=== PATIENT | male | born 1945 | race Caucasian/White ===

== ENCOUNTER 2016-09-13 04:19 | Observation (INO) | payer MEDICARE ==
[~2016-09-13] VITALS: Ht 162.6 cm; Wt 80.0 kg
[2016-09-13] MEDS ORDERED: ONDANSETRON HCL 4 MG/2 ML VIAL ONE (04:25)
[2016-09-13 04:26] VITALS: BP 201/89; PULSE 55; RESP 18; TEMP 98.1; O2SAT 95
[2016-09-13] MEDS ORDERED: SODIUM CHLOR 0.9% 1000 ML INJ 1,000 ML IV ONE (04:30)
[2016-09-13] MEDS ORDERED: ONDANSETRON HCL 4 MG/2 ML VIAL IV PUSH ONE (04:30)
--- NOTE | 2016-09-13 04:43 | PD ---
HPI Chief Complaint: General Weakness Time Seen by Provider: 04:25 Travel History International Travel<30 days: No Contact w/Intl Traveler<30days: No Traveled to known affect area: No History of Present Illness HPI This is a 70-year-old male who presents to the emergency department with 3 days of ringing in his right ear, constant, worsening over the past day associated with dizziness. He says initially he felt dizzy and nauseous. Intermittently he's been feeling sweaty and cool. He went to the [place] and was referred to an sed high school teacher but didn't want to travel. He says overnight he became very dizzy and has been having difficulty walking. He started to vomit and had several episodes of vomiting at home before calling EMS. He denies a headache or chest pain. He's never had symptoms like this before. He takes 81 mg of baby aspirin a day. PFSH Past Medical History Cancer: Yes (PROSTATE- IN REMISSION) High Cholesterol: Yes Diminished Hearing: No Past Surgical History Surgical History: No Previous Surgery Other Surgery: Yes (PROSTATE BIOPSY) Social History Alcohol Use: Yes (RARELY) Tobacco Use: No Substance Use: No Allergies-Medications (Allergen,Severity, Reaction): Coded Allergies: No Known Allergies (Unverified , 09/13/16) Review of Systems Except as stated in HPI: all other systems reviewed are Neg Physical Exam Narrative GENERAL:Uncomfortable appearing, actively retching SKIN: Warm and dry. HEAD: Atraumatic. Normocephalic. EYES: Pupils equal and round. No injection or drainage. ENT: Moist mucous membranes NECK: Trachea midline. CARDIOVASCULAR: Regular rate and rhythm. No murmur appreciated. RESPIRATORY: Clear to auscultation. Breath sounds equal bilaterally. GASTROINTESTINAL: Abdomen soft, non-tender, nondistended. MUSCULOSKELETAL: No obvious deformities. NEUROLOGICAL: Awake and alert. No obvious cranial nerve deficits. No dysarthria or aphasia. No upper or lower extremity drift. Mild ataxial of the bilateral upper extremities. PSYCHIATRIC: Appropriate mood and affect; insight and judgment normal. Data Data Last Documented VS Vital Signs Date Time Temp Pulse Resp B/P Pulse Ox O2 Delivery O2 Flow Rate FiO2 09/13/16 04:31 Room Air 09/13/16 04:26 98.1 55 18 201/89 95 Orders Ondansetron Inj (Zofran Inj) (09/13/16 04:25) Ct Brain W/O Iv Contrast(Rout) (09/13/16 ) Complete Blood Count With Diff (09/13/16 04:26) Comprehensive Metabolic Panel (09/13/16 04:26) Electrocardiogram (09/13/16 ) Troponin I (09/13/16 04:26) ^ Insert Iv (09/13/16 04:26) Ondansetron Inj (Zofran Inj) (09/13/16 04:30) Sodium Chlor 0.9% 1000 Ml Inj (Ns 1000 M (09/13/16 04:30) Salicylates (Aspirin) (09/13/16 04:43) Meclizine (Antivert) (09/13/16 05:00) Admit Order (Ed Use Only) (09/13/16 05:45) Labs Laboratory Tests Test 09/13/16 04:25 White Blood Count 6.4 TH/MM3 Red Blood Count 5.31 MIL/MM3 Hemoglobin 14.9 GM/DL Hematocrit 43.9 % Mean Corpuscular Volume 82.6 FL Mean Corpuscular Hemoglobin 28.1 PG Mean Corpuscular Hemoglobin 33.9 % Concent Red Cell Distribution Width 15.8 % Platelet Count 267 TH/MM3 Mean Platelet Volume 8.6 FL Neutrophils (%) (Auto) 69.1 % Lymphocytes (%) (Auto) 17.1 % Monocytes (%) (Auto) 10.7 % Eosinophils (%) (Auto) 2.4 % Basophils (%) (Auto) 0.7 % Neutrophils # (Auto) 4.4 TH/MM3 Lymphocytes # (Auto) 1.1 TH/MM3 Monocytes # (Auto) 0.7 TH/MM3 Eosinophils # (Auto) 0.2 TH/MM3 Basophils # (Auto) 0.0 TH/MM3 CBC Comment DIFF FINAL Differential Comment Sodium Level 141 MEQ/L Potassium Level 3.9 MEQ/L Chloride Level 108 MEQ/L Carbon Dioxide Level 24.0 MEQ/L Anion Gap 9 MEQ/L Blood Urea Nitrogen 22 MG/DL Creatinine 1.19 MG/DL Estimat Glomerular Filtration 60 ML/MIN Rate Random Glucose 130 MG/DL Calcium Level 8.7 MG/DL Total Bilirubin 0.7 MG/DL Aspartate Amino Transf 23 U/L (AST/SGOT) Alanine Aminotransferase 26 U/L (ALT/SGPT) Alkaline Phosphatase 61 U/L Troponin I LESS THAN 0.02 NG/ML Total Protein 7.3 GM/DL Albumin 3.5 GM/DL Salicylates Level LESS THAN 1.7 MG/DL MDM Medical Decision Making Medical Screen Exam Complete: Yes Emergency Medical Condition: Yes Interpretation(s) afebrile, bradycardia no leukocytosis electrolytes within normal limits troponin .[address] head: no acute process Differential Diagnosis Mnire's disease, vestibular neuritis, ischemic stroke, hemorrhagic stroke, BPPV Narrative Course This is a 70-year-old male who presents to the emergency department with onset of tinnitus and dizziness that started 2 days ago and has been worsening. He is actively retching in the emergency department despite 8 mg of IV Zofran and meclizine. He was placed on a monitor and an IV was established. Labs were obtained which were all reassuring. CT the head is negative for intercranial hemorrhage. It is also mild ataxia low bilateral upper extremities and he describes gait instability when he walks. I think it's reasonable to place the patient in observation for symptomatic control and MRI to rule out ischemic stroke. Physician Communication Physician Communication Discussed with Dr. Gayle Diagnosis Primary Impression: Dizziness Admitting Information Admitting Physician Requests: Observation Rocio Russo MD Sep 13, 2016 04:43
--- NOTE | 2016-09-13 04:51 | RADRPT ---
EXAM DATE/TIME: 09/13/2016 04:41 [facility] COMPARISON: No previous studies available for comparison. INDICATIONS : Dizziness, weakness and ringing in ears for two days. RADIATION DOSE: 42.84 CTDIvol (mGy) MEDICAL HISTORY : None SURGICAL HISTORY : None. ENCOUNTER: Initial ACUITY: 2 days PAIN SCALE: 0/10 LOCATION: cranial TECHNIQUE: Multiple contiguous axial images were obtained of the head. Using automated exposure control and adj ustment of the mA and/or kV according to patient size, radiation dose was kept as low as reasonably a chievable to obtain optimal diagnostic quality images. FINDINGS: CEREBRUM: The ventricles are normal for age. No evidence of midline shift, mass lesion, hemorrhage or acute in farction. No extra-axial fluid collections are seen. POSTERIOR FOSSA: The cerebellum and brainstem are intact. The 4th ventricle is midline. The cerebellopontine angle i s unremarkable. EXTRACRANIAL: The visualized portion of the orbits is intact. SKULL: The calvaria is intact. No evidence of skull fracture. CONCLUSION: Normal examination. Augustin Montgomery MD on September 13, 2016 at 4:49 Board Certified Radiologist. This report was verified electronically.
[2016-09-13 04:58] LABS: AUTOMATED NEUTROPHIL # 4.4 TH/MM3 (1.8-7.7); BASOPHIL % 0.7 % (0.0-2.0); EOSINOPHIL # 0.2 TH/MM3 (0-0.4); EOSINOPHIL % 2.4 % (0.0-4.0); HEMATOCRIT 43.9 % (39.0-51.0); HEMO FLAGS DIFF FINAL; LYMPH % 17.1 % (9.0-44.0); LYMPHOCYTE # 1.1 TH/MM3 (1.0-4.8); MEAN CELL VOLUME 82.6 FL (80.0-100.0); MEAN CORPUSCULAR HEMOGLOBIN 28.1 PG (27.0-34.0); MEAN CORPUSCULAR HGB CONC 33.9 % (32.0-36.0); MONO % 10.7 % (0.0-8.0); NEUT % 69.1 % (16.0-70.0); PLATELET COUNT 267 TH/MM3 (150-450); RED BLOOD COUNT 5.31 MIL/MM3 (4.50-5.90); RED CELL DISTRIBUTION WIDTH 15.8 % (11.6-17.2); WHITE BLOOD COUNT 6.4 TH/MM3 (4.0-11.0)
[2016-09-13 05:00] VITALS: BP 173/79; PULSE 53; RESP 20; O2SAT 98
[2016-09-13] MEDS ORDERED: MECLIZINE HCL 25 MG TAB PO ONE (05:00)
[2016-09-13 05:21] LABS: ALKALINE PHOSPHATASE 61 U/L (45-117); TOTAL BILIRUBIN ADULT 0.7 MG/DL (0.2-1.0)
[2016-09-13 05:22] LABS: ALT (GPT) 26 U/L (12-78); ANION GAP 9 MEQ/L (5-15); AST (GOT) 23 U/L (15-37); BLOOD UREA NITROGEN 22 MG/DL (7-18); CHLORIDE 108 MEQ/L (98-107); GLOMERULAR FILTRATION RATE 60 ML/MIN (>89); POTASSIUM 3.9 MEQ/L (3.5-5.1); SODIUM (NA) 141 MEQ/L (136-145)
[2016-09-13 06:00] VITALS: BP 203/88; PULSE 56; RESP 20; O2SAT 98
[2016-09-13] MEDS ORDERED: METOCLOPRAMIDE HCL 10 MG/2 ML VIAL IV PUSH PRN (06:15)
[2016-09-13] MEDS ORDERED: SODIUM CHLORIDE 0.9% FLUSH 5 ML FLUSH FLUSH PRN (06:15)
[2016-09-13] MEDS ORDERED: NALOXONE HCL 0.4 MG/ML AMP IV PRN (06:15)
--- NOTE | 2016-09-13 06:23 | HHI.HP ---
[facility] Non-Staff Admission Diagnosis dizziness Diagnoses: (1) Dizziness (2) Tinnitus (3) Imbalance (4) Hyperlipidemia (5) Acute renal insufficiency Chief Complaint: Ears ringing, dizziness, nausea and vomiting Travel History International Travel<30 Days: No Contact w/Intl Traveler <30 Da: No Traveled to Known Affected Are: No History of Present Illness Mr. Reid is a 70 year-old male with a history of hyperlipidemia and prostate cancer who presented to the ER for evaluation of severe dizziness. Head CT performed in ER was negative. The patient continued to vomit in the ER despite anti-emetics and he was admitted for observation. The patient is seen in the emergency room. He states that his symptoms began on 09/11/2016 with a loud ringing in his right ear. He was able to go to the gym and work out but noted that afterwards while he was showering, he became very unsteady. He states that over the next couple of days he became dizzy and symptoms got progressively worse and were accompanied by nausea, vomiting, palpitations, diaphoresis, and a feeling of being "wobbly" on legs while ambulating. He states he vomited twice while EMS at house and once in ER here. Denies hematemesis. Denies unilateral weakness noted when ambulating. Denies dysphagia, visual changes, or facial droop. 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 Denies history of hypertension, diabetes mellitus, heart problems, breathing problems, liver or kidney disease, seizures, thyroid dysfunction, irregular heart rhythms such as atrial fibrillation, problems with blood clots such as DVT , PE, or CVA. History of prostate cancer - had 44 radiation treatments for it, no surgery. . Review of Systems Constitutional: COMPLAINS OF: Diaphoretic episodes, Dizziness Ears, nose, mouth, throat: COMPLAINS OF: Tinnitus, DENIES: Vertigo, Ear Pain Gastrointestinal: COMPLAINS OF: Nausea, Vomiting, DENIES: Black stools, Bloody stools, Difficulty Swallowing Neurologic: COMPLAINS OF: Abnormal gait, Poor Balance, DENIES: Headache, Localized weakness, Paresthesias, Seizures, Speech Problems Other 10 point system review performed and other than what is noted in history of present illness and ROS, review is otherwise negative . Past Family Social History Past Medical History Prostate CA Hyperlipidemia . Past Surgical History A couple of moles removed in the 70's . Reported Medications Pravastatin 20 mg daily Baby aspirin Vitamin D MVI . Allergies: Coded Allergies: No Known Allergies (Unverified , 09/13/16) Active Ordered Medications Current Medications Ondansetron HCl (Zofran Inj) 4 mg STK-MED ONCE .ROUTE ; Start 09/13/16 at 04:25 ; Stop 09/13/16 at 04:26; Status DC Ondansetron HCl 4 mg 4 mg ONCE ONCE IV PUSH Last administered on 09/13/16 04: 35; Start 09/13/16 at 04:30; Stop 09/13/16 at 04:31; Status DC Sodium Chloride (NS 1000 ml Inj) 1,000 ml @ 999 mls/hr BOLUS ONCE IV Last administered on 09/13/16 04:35; Start 09/13/16 at 04:30; Stop 09/13/16 at 05:30 ; Status DC Meclizine HCl (Antivert) 25 mg ONCE ONCE PO Last administered on 09/13/16 05: 07; Start 09/13/16 at 05:00; Stop 09/13/16 at 05:01; Status DC IV Flush (NS Flush) 2 ml UNSCH PRN FLUSH FLUSH AFTER USING IV ACCESS; Start at 06:15 IV Flush (NS Flush) 2 ml BID FLUSH ; Start 09/13/16 at 09:00 Ondansetron HCl (Zofran Inj) 4 mg Q6H PRN IVP NAUSEA OR VOMITING; Start at 10:00 Metoclopramide HCl (Reglan Inj) 5 mg Q6H PRN IV PUSH NAUSEA OR VOMITING; Start 09/13/16 at 06:15 Naloxone HCl (Narcan Inj) 0.4 mg UNSCH PRN IV SEE LABEL COMMENTS; Start at 06:15 Family History Mother had a CVA, hiatal hernia . Social History Tobacco: denies Alcohol: occasional beer Illicit drugs: denies . Physical Exam Vital Signs Vital Signs Date Time Temp Pulse Resp B/P Pulse Ox O2 Delivery O2 Flow Rate FiO2 09/13/16 04:31 Room Air 09/13/16 04:26 98.1 55 18 201/89 95 Physical Exam GENERAL: This is a well-developed patient who appears younger than stated age, in no apparent distress. SKIN: No rashes, ecchymoses or lesions. Cool and dry. HEAD: Atraumatic. Normocephalic. EYES: No scleral icterus. No injection or drainage. ENT: Nose without bleeding, purulent drainage. NECK: Trachea midline. No JVD or lymphadenopathy. CARDIOVASCULAR: Regular rate and rhythm without murmurs, gallops, or rubs. RESPIRATORY: Clear to auscultation. Breath sounds equal bilaterally. No wheezes , rales, or rhonchi. GASTROINTESTINAL: Abdomen soft, non-tender, nondistended. No guarding. MUSCULOSKELETAL: Extremities without clubbing, cyanosis, or edema. No calf tenderness. NEUROLOGICAL: Awake and alert. Motor and sensory grossly within normal limits. Normal speech. . Laboratory Laboratory Tests Test 09/13/16 04:25 White Blood Count 6.4 Red Blood Count 5.31 Hemoglobin 14.9 Hematocrit 43.9 Mean Corpuscular Volume 82.6 Mean Corpuscular Hemoglobin 28.1 Mean Corpuscular Hemoglobin 33.9 Concent Red Cell Distribution Width 15.8 Platelet Count 267 Mean Platelet Volume 8.6 Neutrophils (%) (Auto) 69.1 Lymphocytes (%) (Auto) 17.1 Monocytes (%) (Auto) 10.7 Eosinophils (%) (Auto) 2.4 Basophils (%) (Auto) 0.7 Neutrophils # (Auto) 4.4 Lymphocytes # (Auto) 1.1 Monocytes # (Auto) 0.7 Eosinophils # (Auto) 0.2 Basophils # (Auto) 0.0 CBC Comment DIFF FINAL Differential Comment Sodium Level 141 Potassium Level 3.9 Chloride Level 108 Carbon Dioxide Level 24.0 Anion Gap 9 Blood Urea Nitrogen 22 Creatinine 1.19 Estimat Glomerular Filtration 60 Rate Random Glucose 130 Calcium Level 8.7 Total Bilirubin 0.7 Aspartate Amino Transf 23 (AST/SGOT) Alanine Aminotransferase 26 (ALT/SGPT) Alkaline Phosphatase 61 Troponin I LESS THAN 0.02 Total Protein 7.3 Albumin 3.5 Salicylates Level LESS THAN 1.7 Result Diagram: 09/13/1642409/13/16424 Imaging Current Medications Ondansetron HCl (Zofran Inj) 4 mg STK-MED ONCE .ROUTE ; Start 09/13/16 at 04:25 ; Stop 09/13/16 at 04:26; Status DC Ondansetron HCl 4 mg 4 mg ONCE ONCE IV PUSH Last administered on 09/13/16 04: 35; Start 09/13/16 at 04:30; Stop 09/13/16 at 04:31; Status DC Sodium Chloride (NS 1000 ml Inj) 1,000 ml @ 999 mls/hr BOLUS ONCE IV Last administered on 09/13/16 04:35; Start 09/13/16 at 04:30; Stop 09/13/16 at 05:30 ; Status DC Meclizine HCl (Antivert) 25 mg ONCE ONCE PO Last administered on 09/13/16 05: 07; Start 09/13/16 at 05:00; Stop 09/13/16 at 05:01; Status DC IV Flush (NS Flush) 2 ml UNSCH PRN FLUSH FLUSH AFTER USING IV ACCESS; Start at 06:15 IV Flush (NS Flush) 2 ml BID FLUSH ; Start 09/13/16 at 09:00 Ondansetron HCl (Zofran Inj) 4 mg Q6H PRN IVP NAUSEA OR VOMITING; Start at 10:00 Metoclopramide HCl (Reglan Inj) 5 mg Q6H PRN IV PUSH NAUSEA OR VOMITING; Start 09/13/16 at 06:15 Naloxone HCl (Narcan Inj) 0.4 mg UNSCH PRN IV SEE LABEL COMMENTS; Start at 06:15 Assessment and Plan Problem List: (1) Dizziness ICD Code: R42 Status: Acute (2) Tinnitus ICD Code: H93.19 Status: Acute (3) Imbalance ICD Code: R26.89 Status: Acute (4) Nausea and vomiting ICD Code: R11.2 Status: Acute (5) Hyperlipidemia ICD Code: E78.5 Status: Chronic (6) Acute renal insufficiency ICD Code: N28.9 Status: Acute Assessment and Plan Mr. Reid is a 70 year-old male with a history of hyperlipidemia and prostate cancer who presented to the ER for evaluation of severe dizziness. Head CT performed in ER was negative. The patient continued to vomit in the ER despite anti-emetics and he was admitted for observation. Dizziness Tinnitus - Meclizine 25 mg by mouth scheduled every 8 hours - MRI brain without contrast rule out CVA - Bilateral carotid ultrasound to rule out carotid atherosclerosis as contributing factor - Neuro checks every 4 hours - Continuous cardiac telemetry to monitor for cardiac arrhythmias that contributing to symptoms - Out of bed with assistance only -Troponin I less than 0.02 on admission Nausea and vomiting - Reglan 5 mg IV every 6 hours when necessary for nausea and/or vomiting - Zofran 4 mg IV every 6 hours when necessary for nausea and/or vomiting Imbalance - PT consult to evaluate gait stability Hyperlipidemia - resume home statin therapy once medication reconciliation is completed; nursing order written Mild renal insufficiency likely secondary to dehydration resulting from nausea and vomiting - BUN 22, creatinine 1.19, estimated GFR 60- no prior visits for comparison - Repeat BMP in a.m. and follow trends DVT prophylaxis - SCDs Written by Lillian Ragland, acting as scribe for Dr. Gayle on 09/13/16 at 06:15. All or portions of this note were transcribed by scribe [Lillian Ragland]. I, Dr. Giselle Gayle personally performed the history, physical exam, and medical decision making; and confirmed the accuracy of the information in the transcribed note. Authenticated by Dr. Giselle Gayle on 09/13/16 at 0615 Discussed Condition With ER physician and patient . Lillian Ragland Sep 13, 2016 06:23 Giselle Gayle MD Oct 23, 2016 08:01
[2016-09-13] MEDS ORDERED: ASPI81CH CHEW (06:46)
[2016-09-13] MEDS ORDERED: PRAV20TA2 PO (06:46)
[2016-09-13] MEDS ORDERED: FISH500C PO (06:46)
[2016-09-13 07:00] VITALS: BP 156/72; PULSE 53; PULSE 54; RESP 16; O2SAT 96; O2SAT 98
[2016-09-13] MEDS ORDERED: cloNIDine HCL 0.1 MG TAB PO PRN (07:15)
[2016-09-13] MEDS ORDERED: cloNIDine HCL 0.1 MG TAB PO ONE (07:15)
[2016-09-13] MEDS ORDERED: ENALAPRILAT 1.25 MG/ML VIAL IV PUSH PRN (07:15)
[2016-09-13] MEDS ORDERED: SODIUM CHLORIDE 0.9% FLUSH 5 ML FLUSH FLUSH SCH (09:00)
[2016-09-13] MEDS ORDERED: GADODIAMIDE PF 287 MG/ML 20 ML VIAL (for RAD MRI) IV ONE (09:50)
--- NOTE | 2016-09-13 09:57 | RADRPT ---
EXAM DATE/TIME: 09/13/2016 09:30 [facility] COMPARISON: CT BRAIN W/O CONTRAST, September 13, 2016, 4:41. INDICATIONS : Dizziness. MEDICAL HISTORY : Carcinoma, prostate. SURGICAL HISTORY : None. ENCOUNTER: Initial ACUITY: 1 day PAIN SCORE: 0/10 LOCATION: cranial Please note a normal MRA of the brain does not entirely exclude the possibility of a small aneurysm, nor the possibility of distal intracranial vessel disease. TECHNIQUE: 3D time of flight MRA was performed. Source images, multiplanar STS MIP, and 3D volume MIP reconstru ctions were reviewed. FINDINGS: There is excellent visualization of the major intracranial arteries out to the second-order branch ve ssels. There is no evidence for aneurysm, vessel truncation or stenosis, and no evidence for vascula r malformation. CONCLUSION: Normal examination. Alexandre Gilmore MD on September 13, 2016 at 9:54 Board Certified Radiologist. This report was verified electronically.
[2016-09-13] MEDS ORDERED: ONDANSETRON HCL 4 MG/2 ML VIAL IVP PRN (10:00)
--- NOTE | 2016-09-13 10:01 | RADRPT ---
EXAM DATE/TIME: 09/13/2016 09:30 [facility] COMPARISON: No previous studies available for comparison. INDICATIONS : Dizziness. CONTRAST: 16 cc Omniscan (gadodiamide) IV MEDICAL HISTORY : Carcinoma, prostate. SURGICAL HISTORY : None. ENCOUNTER: Initial ACUITY: 1 day PAIN SCORE: 0/10 LOCATION: cranial TECHNIQUE: Multiplanar, multisequence MRI of the brain was performed both prior to and following the administrat ion of paramagnetic contrast. FINDINGS: CEREBRUM: The ventricles are normal for age. No evidence of midline shift, mass lesion, hemorrhage or acute in farction. No extraaxial fluid collections are seen. The pituitary gland and suprasellar cistern are normal in configuration. A few areas of small microvascular ischemic demyelinization in deep white m atter acceptable for the patient's age and WHITE MATTER: No significant signal abnormalities are seen in the white matter. POSTERIOR FOSSA: The cerebellum and brainstem are intact. The 4th ventricle is midline. The cerebellopontine angle is unremarkable. The cerebellar tonsils are normal in position. DIFFUSION IMAGING: No focal areas of restricted diffusion are seen. No evidence of acute infarction. EXTRACRANIAL: The visualized portions of the orbits and paranasal sinuses are unremarkable. POST-CONTRAST: No abnormal areas of parenchymal or dural enhancement. No evidence of blood-brain barrier breakdown. CONCLUSION: Normal examination for a patient of this age. Alexandre Gilmore MD on September 13, 2016 at 9:59 Board Certified Radiologist. This report was verified electronically.
--- NOTE | 2016-09-13 10:37 | RADRPT ---
EXAM DATE/TIME: 09/13/2016 08:30 [facility] COMPARISON: No previous studies available for comparison. INDICATIONS : Dizziness, headache, vomiting. MEDICAL HISTORY : Carcinoma, prostate. SURGICAL HISTORY : None. ENCOUNTER: Initial ACUITY: 2 days PAIN SCORE: 0/10 LOCATION: Bilateral neck PEAK SYSTOLIC VELOCITIES (cm/sec): ICA/CCA RATIO: Right: 1.1 Left: 0.8 ICA: Right: 129 Left: 79 CCA: Right: 122 Left: 97 ECA: Right: 67 Left: 90 VERTEBRAL: Right: 73 antegrade Left: 47 antegrade Elevated flow velocities and ICA/CCA ratios have been found to correlate with increased degrees of vessel stenosis, calculated as percentage of diameter relative to a normal segment of distal ICA/CCA FINDINGS: RIGHT CAROTID: No significant stenosis is visualized. There is mild atherosclerotic plaquing. The waveforms are wit hin normal limits. LEFT CAROTID: No significant stenosis is visualized. There is mild atherosclerotic plaquing. The waveforms are wit hin normal limits. VERTEBRAL ARTERIES: Antegrade flow is seen in both vertebral arteries. MISCELLANEOUS: None. CONCLUSION: 1. No hemodynamically significant carotid artery stenosis identified. 2. Mild atherosclerotic plaquing at the bifurcations. Levon Bolanos MD on September 13, 2016 at 10:35 Board Certified Radiologist. This report was verified electronically.
[2016-09-13 11:00] VITALS: BP 145/65; PULSE 58; RESP 16; O2SAT 98
--- NOTE | 2016-09-13 13:09 | HHI.PR ---
Subjective Remarks Follow up for dizziness. Patient's dizziness spontaneously resolved earlier today. He's been able to ambulate with no symptoms. He has no complaints at this time and wants to go home. Objective Vitals Vital Signs Date Time Temp Pulse Resp B/P Pulse Ox O2 Delivery O2 Flow Rate FiO2 09/13/16 11:00 58 16 145/65 98 Room Air 09/13/16 07:00 54 16 156/72 96 Room Air 09/13/16 06:00 56 20 203/88 98 Room Air 09/13/16 05:00 53 20 173/79 98 Room Air 09/13/16 04:31 Room Air 09/13/16 04:26 98.1 55 18 201/89 95 Result Diagram: 09/13/16 0425 09/13/16 0425 Imaging Last Impressions Head Magnetic Resonance Angiography 09/13/16 0000 Signed Impressions: Service Date/Time: Tuesday, September 13, 2016 09:30 - CONCLUSION: Normal examination. Alexandre Gilmore MD Head CT 09/13/16 0000 Signed Impressions: Service Date/Time: Tuesday, September 13, 2016 04:41 - CONCLUSION: Normal examination. Augustin Montgomery MD Carotid Artery Ultrasound 09/13/16 0000 Signed Impressions: Service Date/Time: Tuesday, September 13, 2016 08:30 - CONCLUSION: 1. No hemodynamically significant carotid artery stenosis identified. 2. Mild atherosclerotic plaquing at the bifurcations. Levon Bolanos MD Brain MRI 09/13/16 0000 Signed Impressions: Service Date/Time: Tuesday, September 13, 2016 09:30 - CONCLUSION: Normal examination for a patient of this age. Alexandre Gilmore MD Objective Remarks GENERAL: Well-developed well-nourished. In no acute distress. SKIN: Warm and dry. No lesions noted. HEENT: Normocephalic. Pupils equal and round. EOMs intact. Mucous membranes pink and moist. CARDIOVASCULAR: Regular rate and rhythm. No murmur appreciated. RESPIRATORY: No accessory muscle use. Clear to auscultation. Breath sounds equal bilaterally. GASTROINTESTINAL: Abdomen soft, non-tender, nondistended. Bowel sounds x4. MUSCULOSKELETAL: No obvious deformities. No clubbing or cyanosis. No edema. NEUROLOGICAL: Awake and alert. No focal neurological deficits. Moves upper and lower extremities spontaneously. Normal speech. Strength 5/5 PSYCHIATRIC: Appropriate mood and affect; insight and judgment normal. A/P Problem List: (1) Dizziness ICD Code: R42 Status: Acute (2) Tinnitus ICD Code: H93.19 Status: Acute (3) Imbalance ICD Code: R26.89 Status: Acute (4) Nausea and vomiting ICD Code: R11.2 Status: Acute (5) Hyperlipidemia ICD Code: E78.5 Status: Chronic (6) Acute renal insufficiency ICD Code: N28.9 Status: Acute Assessment and Plan Mr. Reid is a 70 year-old male with a history of hyperlipidemia and prostate cancer who presented to the ER for evaluation of severe dizziness. Dizziness Tinnitus Gait imbalance Likely secondary to BPPV. Brain MRI with no acute process. Brain MRA and carotid ultrasound also reviewed and unremarkable. - Improved with Meclizine, continue meclizine as needed - PT consulted, recommended no restrictions Nausea and vomiting S/P IVF -Antiemetics as needed Resolved Hyperlipidemia -Continue home statin Accelerated hypertension: Improved. Likely secondary to dizziness and vomiting as above. BP currently 145/65. Outpatient PCP follow-up. DVT prophylaxis - SCDs Written by Franky Benito, acting as scribe for Dr. Schmitz on 09/13/16 at 13:08. The documentation accurately reflects the work performed [id number] by me 09/13 at 13:08. Discharge Planning Discharge patient to home Condition on discharge: Improved Heart healthy Diet as tolerated Regular activity Rx written: Meclizine Follow-up with primary care physician Franky Benito Sep 13, 2016 13:09 Caitlin Schmitz MD Sep 13, 2016 19:35
[2016-09-13] MEDS ORDERED: MECL-62 PO (13:10)
[2016-09-13] MEDS ORDERED: MECLIZINE HCL 25 MG TAB PO SCH (14:00)
--- NOTE | 2016-09-13 16:17 | EKG ---
Date Performed: 09/13/2016 Time Performed: 05:08:15 PTAGE: 70 years EKG: SINUS BRADYCARDIA BORDERLINE LEFT AXIS DEVIATION MODERATE INTRAVENTRICULAR CONDUCTION DELAY BORDERLINE ECG NO PREVIOUS TRACING DOCTOR: Lavon Fermin Interpretating Date/Time 09/13/2016 16:15:58
[2016-09-13] MEDS ORDERED: PRAVASTATIN SOD 20 MG TAB PO SCH (21:00)
== END 2016-09-13 13:41 | disposition home or self-care (01) ==
LOC: NEPE 04:19 → NEDA 05:46 → NEDH 09:42
PROVIDERS: ADMIT Hospitalist; ATTEND Hospitalist
DX: R42 Dizziness and giddiness (principal); H93.19 Tinnitus, unspecified ear; R26.89 Other abnormalities of gait and mobility; R94.31 Abnormal electrocardiogram [ECG] [EKG]; E86.0 Dehydration; E78.5 Hyperlipidemia, unspecified; I10 Essential (primary) hypertension; N28.9 Disorder of kidney and ureter, unspecified; E78.00 Pure hypercholesterolemia, unspecified; Z85.46 Personal history of malignant neoplasm of prostate
CPT/HCPCS: 70450; 70544; 70553; 80053; 84484; 85025; 93005; 93880; 96361; 96374; 97162; 99285; A9579; G0378; G0480; G8987; G8988; J2405; J7030; 80329